=== PATIENT | female | born 1975 | race Caucasian/White ===

== ENCOUNTER 2019-03-29 09:33 | Emergency (ER) | payer BC ==
[~2019-03-29] VITALS: Ht 167.6 cm; Wt 96.2 kg
[2019-03-29 09:53] VITALS: BP 154/101
[2019-03-29] MEDS: FLUORESCEIN SOD 1 MG TEST STRIP LEFTEYE ONE (10:15)
[2019-03-29] MEDS: TETRACAINE HCL 0.5% OPTH(EYE) SOLN 4ML LEFTEYE ONE (10:15)
== END 2019-03-29 10:57 | disposition home or self-care (01) ==
LOC: ER 09:33
DX: S05.02XA Injury of conjunctiva and corneal abrasion without foreign body, left eye, initial encounter (principal); I10 Essential (primary) hypertension; Z91.013 Allergy to seafood; X58.XXXA Exposure to other specified factors, initial encounter; Y93.89 Activity, other specified; Y99.8 Other external cause status; Y92.89 Other specified places as the place of occurrence of the external cause